=== PATIENT | male | born 1960 | race African-American/Black ===

== ENCOUNTER 2020-04-25 14:28 | Emergency (ER) | payer OTHER ==
[~2020-04-25] VITALS: Ht 180.3 cm; Wt 76.2 kg
--- NOTE | 2020-04-25 14:49 | Emergency Room Report ---
History of Present Illness General Chief Complaint: General Complaint Source: EMS Present Illness HPI Disclaimer: Please note that this report is being documented using [employer] technology. This can lead to erroneous entry secondary to incorrect interpretation by the dictating instrument. HPI: 59-year-old male history of asthma, anxiety disorder, schizophrenia presents for evaluation of anxiety. Patient is homeless but has been staying with his sister. States he was in an argument with his sister earlier and afterwards feels very tense and anxious. He denies chest pain, palpitations, shortness of breath. He has not been without his Lexapro and Abilify for over a month stating he could not fill his prescriptions that he does have them from his PCP as well as his mental health counselor. He had that yesterday he believes he had a ground-level fall. He states he has episodes where he "falls out" which have happened once every 3 months for the past several years. These have been investigated by his PCP according to patient. He reports a generalized headache today that is worse in the back and spreading forward. Denies visual changes, numbness or tingling. Denies pain in the back or obvious injury. PMH: Schizophrenia, anxiety, asthma PSH: Reviewed Allergies: Reviewed Social Hx: Reviewed Allergies: Coded Allergies: No Known Allergies (Unverified , 04/25/20) COVID-19 Screening Contact w/high risk pt: No Experienced COVID-19 symptoms?: No COVID-19 Testing performed HORSE GROOMER: No Nursing Documentation-PMH Past Medical History: No History, Except For Review of Systems All Other Systems: negative except mentioned in HPI Physical Exam Vital Signs Date Time Temp Pulse Resp B/P (MAP) Pulse Ox O2 Delivery O2 Flow Rate FiO2 04/25/20 14:29 98.2 110 20 134/77 (96) 98 Room Air General: Awake and alert, emotional, anxious appearing HEENT: NC/AT. EOMI. Cardiovascular: Tachycardia. S1 and S2 normal. No murmur appreciated Resp: Normal work of breathing. No cough, wheezing or crackles appreciated Abdomen: Abdomen is soft, nondistended. Nontender Skin: Intact. No abrasions, laceration or rash over the exposed skin MSK: Normal tone and bulk. Moving all extremities. No obvious deformity. Neuro: Awake and alert. Mentating appropriately. Denies SI/HI. Tearful. Medical Decision Making Homeless Attestation Patient is homeless. Patient has been medically screened and is stable for outpatient follow up Diagnostic Impression: Primary Impression: Anxiety ER Course 59-year-old male presenting for evaluation of anxiety and reported fall yesterday. Differential includes was not limited to intracranial injury, palpitations, arrhythmia, ACS, electrolyte abnormality, anemia, anxiety, bronchitis, asthma exacerbation among others. No clinical evidence of asthma exacerbation. Arrives stable vital signs. CT scan of the head does not show any intracranial injury. No infiltrates on chest x-ray. EKG shows nonspecific T wave changes but otherwise no evidence of acute ischemia and intervals are within normal limits. Troponin negative. Other labs largely within normal except for slightly elevated LFTs. He is sleeping comfortably on reevaluation. He is requesting a refill of his Ventolin inhaler which I will provide. Otherwise he stable for outpatient follow-up. I instructed him to fill the prescriptions he has for his psychiatric medications and to follow-up with his PMD and his mental health counselor. Calling his family for a ride. Discussed reasons to return to the ER; he understands and agrees with treatment plan. Laboratory Tests Test 04/25/20 14:59 White Blood Count 9.3 K/UL (4.8-10.8) Red Blood Count 5.11 M/UL (4.70-6.10) Hemoglobin 16.6 G/DL (14.2-18.0) Hematocrit 46.6 % (42.0-52.0) Mean Corpuscular Volume 91 FL (80-99) Mean Corpuscular Hemoglobin 32.5 PG (27.0-31.0) H Mean Corpuscular Hemoglobin Concent 35.6 G/DL (32.0-36.0) Red Cell Distribution Width 13.4 % (11.6-14.8) Platelet Count 260 K/UL (150-450) Mean Platelet Volume 7.2 FL (6.5-10.1) Neutrophils (%) (Auto) 73.5 % (45.0-75.0) Lymphocytes (%) (Auto) 21.8 % (20.0-45.0) Monocytes (%) (Auto) 3.7 % (1.0-10.0) Eosinophils (%) (Auto) 0.1 % (0.0-3.0) Basophils (%) (Auto) 1.0 % (0.0-2.0) Sodium Level 142 MMOL/L (136-145) Potassium Level 3.6 MMOL/L (3.5-5.1) Chloride Level 103 MMOL/L (98-107) Carbon Dioxide Level 30 MMOL/L (21-32) Anion Gap 9 mmol/L (5-15) Blood Urea Nitrogen 16 mg/dL (7-18) Creatinine 1.1 MG/DL (0.55-1.30) Estimated Glomerular Filtration Rate > 60 mL/min (>60) Glucose Level 87 MG/DL (74-106) Calcium Level 10.8 MG/DL (8.5-10.1) H Total Bilirubin 0.4 MG/DL (0.2-1.0) Aspartate Amino Transferase (AST) 105 U/L (15-37) H Alanine Aminotransferase (ALT) 145 U/L (12-78) H Alkaline Phosphatase 86 U/L (46-116) Troponin I 0.006 ng/mL (0.000-0.056) Pro-B-Type Natriuretic Peptide 26 pg/mL (0-125) Total Protein 8.4 G/DL (6.4-8.2) H Albumin 4.3 G/DL (3.4-5.0) Globulin 4.1 g/dL Albumin/Globulin Ratio 1.0 (1.0-2.7) EKG Diagnostic Results Troponin ordered: Yes EKG Time: 15:29 Rate: normal Rhythm: NSR ST Segments: no acute changes Other Impression Sinus rhythm, normal axis, normal intervals, QTC 442 ms, incomplete right bundle branch block pattern. Rhythm Strip Diag. Results Rhythm Strip Time: 15:29 EP Interpretation: yes Rate: 87 Rhythm: NSR, no PVC's, no ectopy Chest X-Ray Diagnostic Results Chest X-Ray Diagnostic Results : Chest X-Ray Ordered: Yes # of Views/Limited/Complete: 1 View Indication: Other - Anxiety EP Interpretation: Yes Interpretation: no consolidation, no effusion, no pneumothorax, no acute cardiopulmonary disease Impression: No acute disease Electronically Signed by: Electronically signed by Dr. Navin Centeno MD CT/MRI/US Diagnostic Results CT/MRI/US Diagnostic Results : Impression Procedure: CT Head no Contrast Indications: Syncope, head trauma Comparison: None. Findings: No acute intracranial hemorrhage or edema, mass effect, nor midline shift. Normal mayo-white differentiation. Normal size ventricles and extra axial CSF spaces. Intact calvarium. The mastoids are clear. Visualized orbits and sinuses are unremarkable. Impression: Negative Dictated By: Jorge Henderson MD Electronically Signed By:Jorge Henderson MD Signed Date/Time 04/25/20 1528 Last Vital Signs Date Time Temp Pulse Resp B/P (MAP) Pulse Ox O2 Delivery O2 Flow Rate FiO2 04/25/20 14:29 98.2 110 20 134/77 (96) 98 Room Air Disposition: HOME, SELF-CARE Condition: Stable Scripts Albuterol Sulfate (VENTOLIN HFA) 18 Gm Hfa.aer.ad 1 PUFF INH EVERY 6 HOURS, #18 GM 0 Refills Prov: Navin Centeno MD 04/25/20 Referrals: [facility],REFERRING (PCP) Navin Centeno MD Apr 25, 2020 14:49
[2020-04-25 15:02] VITALS: BP 134/77
--- NOTE | 2020-04-25 15:13 | NUR ---
ED Nurse Note: Patient was brought in by # [id number] from home due to anxiety started today. Denies any pain. Statehad 3 episods of black out. Patient presented anxious, AAO x4, VSS at this time. IV established on left AC20 ga, blood collected sent to lab
--- NOTE | 2020-04-25 15:33 | Diagnostic Imaging Report ---
Indications: Syncope, head trauma Technique: Spiral acquisitions obtained through the brain. Angled axial and coronal 5 x 5 mm slices were reconstructed. Total dose length product 965 mGycm. CTDI vol(s) 53 mGy. Dose reduction achieved using automated exposure control Comparison: None. Findings: No acute intracranial hemorrhage or edema, mass effect, nor midline shift. Normal mayo-white differentiation. Normal size ventricles and extra axial CSF spaces. Intact calvarium. The mastoids are clear. Visualized orbits and sinuses are unremarkable. Impression: Negative The CT scanner at [facility] is accredited by the [employer] and the scans are performed using protocols designed to limit radiation exposure to as low as reasonably achievable to attain images of sufficient resolution adequate for diagnostic evaluation.
--- NOTE | 2020-04-25 15:44 | Diagnostic Imaging Report ---
Indication: Abnormal chest sounds Technique: One view of the chest Comparison: none Findings: Lungs and pleural spaces are clear. Heart size is normal. Impression: No acute process
[2020-04-25 15:54] LABS: EOSINOPHILS % (AUTO) 0.1 % (0.0-3.0); HEMATOCRIT 46.6 % (42.0-52.0); HEMOGLOBIN 16.6 G/DL (14.2-18.0); LYMPHOCYTES % (AUTO) 21.8 % (20.0-45.0); MEAN CORPUSCULAR VOLUME 91 FL (80-99); MONOCYTES % (AUTO) 3.7 % (1.0-10.0); NEUTROPHILS % (AUTO) 73.5 % (45.0-75.0); PLATELET COUNT 260 K/UL (150-450); RED BLOOD COUNT 5.11 M/UL (4.70-6.10); RED CELL DISTRIBUTION WIDTH 13.4 % (11.6-14.8); WHITE BLOOD COUNT 9.3 K/UL (4.8-10.8)
[2020-04-25 16:47] LABS: ANION GAP 9 mmol/L (5-15); BLOOD UREA NITROGEN 16 mg/dL (7-18); CALCIUM 10.8 MG/DL (8.5-10.1); CARBON DIOXIDE 30 MMOL/L (21-32); CHLORIDE 103 MMOL/L (98-107); CREATININE 1.1 MG/DL (0.55-1.30); POTASSIUM 3.6 MMOL/L (3.5-5.1); SODIUM 142 MMOL/L (136-145)
[2020-04-25 16:59] LABS: ALANINE AMINOTRANSFERASE 145 U/L (12-78); ALBUMIN 4.3 G/DL (3.4-5.0); ALKALINE PHOSPHATASE 86 U/L (46-116); ASPARTATE AMINO TRANSFERASE 105 U/L (15-37); BILIRUBIN,TOTAL 0.4 MG/DL (0.2-1.0)
[2020-04-25] MEDS ORDERED: VENTOLIN HFA18 GM INH (17:01)
[2020-04-25 17:05] VITALS: BP 134/77
--- NOTE | 2020-04-25 17:15 | NUR ---
ER DISCHARGE NOTE: Patient is cleared to be discharged per ERMD, pt is aox4, on room air, with stable vital signs. pt was given dc and prescription instructions, pt was able to verbalize understanding, pt id band and iv site removed without complications. pt is able to ambulate with steady gait. pt took all belongings.
== END 2020-04-25 17:05 | disposition home or self-care (01) ==
LOC: EDBD 14:28 → EMR 14:38
DX: F41.9 Anxiety disorder, unspecified (principal); F20.9 Schizophrenia, unspecified; J45.909 Unspecified asthma, uncomplicated; R55 Syncope and collapse; R00.0 Tachycardia, unspecified; Z59.0 Homelessness; Z91.81 History of falling
CPT/HCPCS: 36415; 70450; 71045; 80053; 83880; 84484; 85025; 93005; Z7502; 99284